=== PATIENT | female | born 1985 | race African-American/Black ===

== ENCOUNTER 2020-06-20 23:27 | Emergency (ER) | payer MEDICAID, OTHER ==
[~2020-06-20] VITALS: Ht 154.9 cm; Wt 50.3 kg
[2020-06-21 02:31] VITALS: BP 127/87
== END 2020-06-20 23:44 | disposition home or self-care (01) ==
LOC: ER 23:28
DX: S92.332A Displaced fracture of third metatarsal bone, left foot, initial encounter for closed fracture (principal); X58.XXXA Exposure to other specified factors, initial encounter; Y93.89 Activity, other specified; Y92.89 Other specified places as the place of occurrence of the external cause; Y99.8 Other external cause status
CPT/HCPCS: 29515